=== PATIENT | female | born 1995 | race American Indian/Alaskan Native ===

== ENCOUNTER 2021-01-15 05:08 | Emergency (ER) | payer BC ==
[2021-01-15 06:52] LABS: Bilirubin,Urine NEG (Negative); Blood,Urine LG (Negative); Color,Urine Colorless (Yellow); Protein,Urine <15 mg/dL mg/dL (Negative); RBC,Urine < 1.0 /HPF (0.0-6.0); Urobilinogen,Urine < 2.0 mg/dL (<2.0)
[2021-01-15 06:53] LABS: HCG Qualitative,Urine Negative (Negative)
== END 2021-01-15 07:00 | disposition left against medical advice (07) ==
LOC: ED 05:08
DX: R35.0 Frequency of micturition (principal); Z53.21 Procedure and treatment not carried out due to patient leaving prior to being seen by health care provider
CPT/HCPCS: 81001; 81025; 87076; 87086; 87186